=== PATIENT | male | born 1980 | race Two or more races ===

== ENCOUNTER → 2024-10-29 | Outpatient (CLI) | payer BC, SELFPAY ==
--- NOTE | 2024-10-29 | XR_ITS ---
Examination: Wrist, right 3 views Technique: Wrist AP, oblique, lateral 3 views Date and time of exam: October 29, 2024 at 0719 hrs. Indications: Lump on the distal ulna The wrist beginning 2 years ago with pain beginning one month ago Findings: Early osteoarthritis radiocarpal joint No fracture or dislocation No bony exostosis No opaque foreign body As clinically warranted, MRI wrist without contrast follow-up would best assess for ganglion cysts as well as other soft tissue abnormality Impression: Early osteoarthritis radiocarpal joint No fracture
[2024-10-29 07:55] LABS: Quantiferon-TB* See Sep Rpt
[2024-10-29 08:11] LABS: Collection Type, Urine Clean Catch; Squamous Epithelial Cell,Urine 0 /hpf (0-5)
[2024-10-29 08:52] LABS: Basophils % (Auto) 0 % (0-2.5); Eosinophils # (Auto) 0.1 Thou/mm3 (0.0-0.5); Eosinophils % (Auto) 1 % (0-10); Hematocrit 47.3 % (41.0-53.0); Immature Granulocytes % (Auto) 0 % (0-0); Immature Granulocytes Auto 0.02 Thou/mm3 (0.00-0.00); Lymphocytes # (Auto) 1.8 Thou/mm3 (1.0-4.8); Lymphocytes % (Auto) 33 % (10-50); Mean Corpuscular HGB Conc 35.9 g/dl (31.0-37.0); Mean Corpuscular Hemoglobin 31.9 pg (25.0-35.0); Mean Corpuscular Volume 89 fL (80-100); Monocytes # (Auto) 0.4 Thou/mm3 (0.0-0.8); Monocytes % (Auto) 7 % (0-12); Neutrophils # (Auto) 3.1 Thou/mm3 (1.8-7.7); Neutrophils % (Auto) 58 % (37-80); Nucleated Red Blood Cell % 0 /100 WBC (0); Platelet Count 224 Thou/mm3 (140-440); Red Blood Count 5.33 Miln/mm3 (4.50-5.90); White Blood Count 5.4 Thou/mm3 (3.8-10.6)
[2024-10-29 09:14] LABS: Sed Rate (ESR) 2 mm/hr (0-15)
[2024-10-29 09:16] LABS: Bilirubin,Urine Negative (Negative); Blood,Urine Negative (Negative); Clarity,Urine Clear (Clear/Hazy); Color,Urine Lt-Yellow (Lt Yel-Yel); Glucose, Urine Negative (Negative); Ketones,Urine Negative (Negative); Leukocyte Esterase,Urine Negative (Negative); Nitrite,Urine Negative (Negative); Protein,Urine Trace (Neg - Trace); RBC,Urine 3 /hpf (0-3); Specific Gravity,Urine 1.029 (1.001-1.035); Urobilinogen,Urine Negative mg/dL (0.0-1.0); WBC,Urine 1 /hpf (0-5)
[2024-10-29 09:22] LABS: Syphilis Nonreactive (Nonreactive)
[2024-10-29 09:31] LABS: Alanine Aminotransferase 24 U/L (10-49); Albumin, Serum 4.7 gm/dL (3.5-5.0); Albumin/Globulin Ratio 1.9 (1.2-2.2); Alkaline Phosphatase 63 U/L (46-116); Anion Gap 8 (7-16); Aspartate Amino Transferase 22 U/L (0-34); BUN/Creatinine Ratio 20 Ratio (12-20); Bilirubin,Direct 0.1 mg/dL (0.0-0.3); Bilirubin,Total 0.5 mg/dL (0.3-1.2); Blood Urea Nitrogen 20 mg/dL (9-23); C-Reactive Protein < 0.4 mg/dL (0.0-0.9); Calcium 9.6 mg/dL (8.3-10.6); Calcium (Corrected) 9.6 mg/dL (8.5-10.1); Carbon Dioxide 29.8 mMol/L (20.0-31.0); Chloride 102 mMol/L (98-107); Cholesterol 218 mg/dL (132-200); Folate 16.97 ng/mL (>5.38); Free T4 (Free Thyroxine) 1.24 ng/dL (0.89-1.76); Globulin 2.5 gm/dL (2.3-3.5); Glucose 96 mg/dL (74-106); HDL Cholesterol 73 mg/dL (40-60); LDL Cholesterol,Calculated 97 mg/dL (0-130); Osmolality,Calculated 282 (275-295); Potassium 4.5 mMol/L (3.4-5.1); Sodium 140 mMol/L (136-145); Thyroid Stimulating Hormone 2.54 uIU/mL (0.55-4.78); Total Protein 7.2 gm/dL (5.7-8.2); Triglycerides 238 mg/dL (30-150); Vitamin B12 729 pg/mL (211-911); Vitamin D 25 Hydroxy Total 16.2 ng/mL (7.3-40.2); eGFR > 60 See Note
[2024-10-29 09:31] LABS: Creatinine MALB Rnd Ur 191 mg/dL (30-125); Microalbumin, Random Urine < 3 mg/L (0-300)
[2024-10-29 09:33] LABS: Glucose Estimated Average 97 mg/dL (80-131)
[2024-10-29 09:59] LABS: T4 (Thyroxine) 6.8 mcg/dL (4.5-10.9); Total Iron Binding Capacity 305 mcg/dL (250-425)
[2024-10-29 10:09] LABS: Iron 148 mcg/dL (65-175)
[2024-10-29 12:41] LABS: Chlamydia trachomatis PCR Negative (Not Detect); Neisseria Gonorrhoeae DNA PCR Negative (Not Detect); Trichomonas Negative (Negative)
[2024-11-02 13:49] LABS: HIV-1 RNA, QN PCR NOT DETECTED copies/mL
[2024-11-04 06:49] LABS: HIV-1 RNA, QN PCR Log NOT DETECTED
[2024-11-04 06:53] LABS: HIV Ag/Ab, 4th Gen NON-REACTIVE; HSV2 IgG Type Specific Ab <0.90 INDEX; T3 Uptake* 31 % (22-35); Testosterone, Total, Dialysis 691 ng/dL (250-1100)
== END | disposition home or self-care (01) ==
LOC: CDIM 06:48 → COPL 07:25
PROVIDERS: PCP Internal Medicine; Referring Provider Nurse Practitioner Family; Visit Provider Radiology Diagnostic Radiology
DX: M19.031 Primary osteoarthritis, right wrist (principal); E78.2 Mixed hyperlipidemia; D58.2 Other hemoglobinopathies; B00.9 Herpesviral infection, unspecified; R76.8 Other specified abnormal immunological findings in serum; R22.9 Localized swelling, mass and lump, unspecified
CPT/HCPCS: 36415; 73110; 80053; 80061; 80076; 81001; 82043; 82248; 82306; 82570; 82607; 82746; 83036; 83540; 83550; 83970; 84153; 84154; 84402; 84403; 84436; 84439; 84443; 84479; 85025; 85652; 86140; 86480; 86695; 86696; 86780; 87086; 87389; 87491; 87536; 87591; 87661